=== PATIENT | female | born 1955 | race Caucasian/White ===

== ENCOUNTER → 2017-08-28 | Outpatient (CLI) | payer BC ==
[2017-08-28 16:32] LABS: Albumin 4.2 g/dL (3.4-5.0); Bilirubin, Direct 0.1 mg/dL (0-0.2); Bilirubin, Total 0.4 mg/dL (0.2-1.0)
== END | disposition home or self-care (01) ==
LOC: LAB 15:39
PROVIDERS: ATTEND Internal Medicine Gastroenterology
DX: B19.20 Unspecified viral hepatitis C without hepatic coma (principal)
CPT/HCPCS: 36415; 80076; 87522

== ENCOUNTER 2017-12-31 00:44 | Emergency (ER) | payer BC ==
[~2017-12-31] VITALS: Ht 175.3 cm; Wt 70.3 kg
[2017-12-31 01:41] LABS: Basophils # (auto) 0.1 uL; Basophils % (auto) 1.8 % (0.0-2.0); Eosinophils # (auto) 0.1 uL; Hematocrit 41.1 % (36.0-46.0); Lymphocytes # (auto) 1.9 uL; Lymphocytes % (auto) 27.4 % (10.0-50.0); Mean Corpuscular Hemoglobin 29.6 pg (28.0-32.0); Mean Corpuscular Volume 87.2 fL (80.0-100.0); Monocytes # (auto) 0.6 uL; Monocytes % (auto) 8.9 % (0.0-12.0); Neutrophils # (auto) 4.2 uL; Neutrophils % (auto) 60.9 % (37.0-80.0); Nucleated Red Blood Cells % 0.1 %; Platelet Count (auto) 291 10^3/uL (140-450); Red Blood Cells 4.72 10^6/uL (4.0-5.20); Red Cell Distribution Width 12.9 % (11.8-14.3)
[2017-12-31 01:55] LABS: Acetaminophen < 2.0 ug/mL (10-30); Albumin 4.1 g/dL (3.4-5.0); BUN/Creatinine Ratio 16.5; Calcium 8.2 mg/dL (8.5-10.1); Magnesium 2.5 mg/dL (1.6-2.6); Potassium 3.8 mmol/L (3.5-5.1); Salicylate < 1.7 mg/dL (2.8-20.0)
[2017-12-31 01:57] LABS: Bilirubin, Total 0.3 mg/dL (0.2-1.0); Total Protein 8.4 g/dL (6.4-8.2)
[2017-12-31 04:25] LABS: Urine WBC None Seen /hpf (0 - 5)
[2017-12-31 04:39] LABS: Urine Bacteria NONE SEEN /hpf (None Seen); Urine Blood Negative /uL (Negative); Urine Specific Gravity 1.013 (1.001-1.035)
[2017-12-31 05:09] LABS: Amphetamine Screen, Urine NEGATIVE (NEGATIVE); Barbiturate Scree,Urine NEGATIVE (NEGATIVE); Benzodiazephine Screen, Urine NEGATIVE (NEGATIVE); Cannabinoid Screen, Urine NEGATIVE (NEGATIVE); Cocaine Screen, Urine NEGATIVE (NEGATIVE); Opiate Scree,Urine NEGATIVE (NEGATIVE); Phencyclidine Screen, Urine NEGATIVE (NEGATIVE)
[2017-12-31 05:14] VITALS: BP 107/66
== END 2017-12-31 05:24 | disposition home or self-care (01) ==
LOC: EDBD 00:44 → ER 00:44
DX: T42.4X1A Poisoning by benzodiazepines, accidental (unintentional), initial encounter (principal); T40.601A Poisoning by unspecified narcotics, accidental (unintentional), initial encounter; F41.9 Anxiety disorder, unspecified; F10.10 Alcohol abuse, uncomplicated; F32.9 Major depressive disorder, single episode, unspecified; Y92.89 Other specified places as the place of occurrence of the external cause
CPT/HCPCS: 36415; 80053; 80307; 80320; 80329; 81001; 83735; 85025; 93005; 94761

== ENCOUNTER 2018-01-24 13:19 | Inpatient (IN) | payer BC ==
[~2018-01-24] VITALS: Ht 165.1 cm; Wt 77.1 kg
[2018-01-24 14:18] LABS: Basophils # (auto) 0.1 uL; Eosinophils # (auto) 0.1 uL; Eosinophils % (auto) 1.6 % (0.0-7.0); Hematocrit 41.2 % (36.0-46.0); Lymphocytes # (auto) 1.6 uL; Lymphocytes % (auto) 24.4 % (10.0-50.0); Mean Corpuscular Hemoglobin 29.6 pg (28.0-32.0); Mean Corpuscular Hgb Conc. 33.9 g/dL (32.0-36.0); Mean Corpuscular Volume 87.4 fL (80.0-100.0); Monocytes # (auto) 0.7 uL; Monocytes % (auto) 10.8 % (0.0-12.0); Neutrophils # (auto) 4.1 uL; Neutrophils % (auto) 62.2 % (37.0-80.0); Nucleated Red Blood Cells % 0.3 %; Platelet Count (auto) 279 10^3/uL (140-450); Red Blood Cells 4.72 10^6/uL (4.0-5.20); Red Cell Distribution Width 13.1 % (11.8-14.3); White Blood Cell 6.6 10^3/uL (4.4-10.8)
[2018-01-24 14:42] LABS: Anion Gap 8 (5-15); BUN/Creatinine Ratio 15.5; Blood Urea Nitrogen 13 mg/dL (7-18); Carbon Dioxide 22 mmol/L (21-32); Chloride 107 mmol/L (98-107); GFR African American 89 mL/min; Glucose 97 mg/dL (74-106); Potassium 3.9 mmol/L (3.5-5.1); Sodium 137 mmol/L (136-145)
[2018-01-24 14:43] LABS: Alanine Aminotransferase 24 U/L (13-56); Albumin 4.4 g/dL (3.4-5.0); Alkaline Phosphatase 89 U/L (45-117); Aspartate Aminotransferase 14 U/L (15-37); Bilirubin, Total 0.4 mg/dL (0.2-1.0); GFR Non-African American 73 mL/min; Magnesium 2.6 mg/dL (1.6-2.6); Total Protein 8.8 g/dL (6.4-8.2)
[2018-01-24 15:56] LABS: Urine WBC None Seen /hpf (0 - 5)
[2018-01-24 16:03] LABS: Urine Bacteria NONE SEEN /hpf (None Seen); Urine Blood Negative /uL (Negative); Urine Specific Gravity 1.004 (1.001-1.035)
[2018-01-24] MEDS ORDERED: NITROGLYCERIN 0.4 MG SL TAB SL ONE (18:00)
[2018-01-24] MEDS: ASPirin 81 mg TAB PO ONE ×2 (18:05→18:08)
[2018-01-24] MEDS ORDERED: SODIUM CHLORIDE 0.9% 1,000 ML IV SCH (18:06)
[2018-01-24] MEDS ORDERED: ALUM & MAG HYDROX-SIMETH LIQ(MAALOX) 30 ML PO ONE (18:15)
[2018-01-24] MEDS ORDERED: HYDROcodone-ACET 5/325MG TAB PO PRN (18:15)
[2018-01-24] MEDS ORDERED: DONNATAL 5ml ORAL Elix (BELLADONNA ALK-PHENOBARB) PO ONE (18:15)
[2018-01-24] MEDS ORDERED: TEMAZEPAM 15 MG CAP PO PRN (18:15)
[2018-01-24] MEDS ORDERED: ACETAMINOPHEN 500 MG TAB PO PRN (18:15)
[2018-01-24] MEDS ORDERED: ALBUTEROL SULF 2.5 MG/0.5ML(0.5%) NEB SOLN NEB PRN (18:15)
[2018-01-24] MEDS ORDERED: LIDOCAINE VISCOUS 2% 15ML UD PO ONE (18:15)
[2018-01-24] MEDS ORDERED: NITROGLYCERIN 0.4 MG SL TAB SL PRN (18:15)
[2018-01-24] MEDS ORDERED: MORPHINE SULFATE 4 MG/ML SYR/VIAL IV PRN ×2 (18:15)
[2018-01-24] MEDS ORDERED: PROMETHAZINE HCL 25 MG/ML 1ML IV PRN (18:15)
[2018-01-24] MEDS ORDERED: LORazepam 0.5 MG TAB PO PRN (18:15)
[2018-01-24] MEDS ORDERED: IOHEXOL 350 MG/ML 100ML IJ ONE (18:47)
[2018-01-24 19:08] LABS: INR 0.95 (0.9-1.15); Partial Thromboplastin Time 28.4 sec (22.64-33.71); Prothrombin Time 10.4 sec (9.37-12.3)
[2018-01-24 20:23] VITALS: BP 141/100
[2018-01-24 21:31] LABS: Alcohol, Urine < 3.0 mg/dL (0-5); Amphetamine Screen, Urine NEGATIVE (NEGATIVE); Barbiturate Scree,Urine NEGATIVE (NEGATIVE); Benzodiazephine Screen, Urine NEGATIVE (NEGATIVE); Cannabinoid Screen, Urine NEGATIVE (NEGATIVE); Cocaine Screen, Urine NEGATIVE (NEGATIVE); Opiate Scree,Urine NEGATIVE (NEGATIVE); Phencyclidine Screen, Urine NEGATIVE (NEGATIVE)
[2018-01-24] MEDS ORDERED: ATORVASTATIN 20 MG TAB PO SCH (22:00)
[2018-01-24] MEDS ORDERED: METOPROLOL TARTRATE 25 MG TAB PO SCH (22:00)
[2018-01-25] MEDS ORDERED: ASPirin 81 mg TAB PO SCH (10:00)
[2018-01-25] MEDS ORDERED: NITROGLYCERIN 0.2MG/HR TOPICAL PATCH TD SCH (10:00)
[2018-01-25] MEDS ORDERED: ENOXAPARIN SOD 40 MG/0.4 ML SYRINGE SC SCH (10:00)
[2018-01-25] MEDS ORDERED: PANTOPRAZOLE 40 MG TAB PO SCH (10:00)
== END 2018-01-24 21:07 | disposition left against medical advice (07) | DRG 313 ==
LOC: ER 13:19 → TELE 13:20
PROVIDERS: ADMIT Internal Medicine; ATTEND Internal Medicine
DX: R07.89 Other chest pain (principal); I24.9 Acute ischemic heart disease, unspecified; F32.9 Major depressive disorder, single episode, unspecified; G89.4 Chronic pain syndrome; I10 Essential (primary) hypertension; Z53.21 Procedure and treatment not carried out due to patient leaving prior to being seen by health care provider; J44.9 Chronic obstructive pulmonary disease, unspecified; K21.9 Gastro-esophageal reflux disease without esophagitis; F41.9 Anxiety disorder, unspecified; G89.29 Other chronic pain
CPT/HCPCS: 36415; 71046; 71275; 80053; 80307; 81001; 82550; 83735; 83880; 84443; 84484; 85025; 85379; 85610; 85652; 85730; 86141; 93005; 96360